=== PATIENT | male | born 1990 | race Caucasian/White ===

== ENCOUNTER 2021-05-17 19:39 | Observation (INO) ==
[2021-05-17] MEDS ORDERED: HYDROmorphone 0.5 MG/0.5 ML SYRINGE IV SLOW PU PRN (20:25)
[2021-05-17] MEDS ORDERED: Ondansetron 4 mg VIAL 2 MG/ML 2 ml VIAL IV PRN (20:25)
[2021-05-17] MEDS: Lactated Ringers 1000 ml BAG 1,000 ML IV SCH ×2 (20:58→23:24)
[2021-05-18] MEDS ORDERED: Buffered Lidocaine 1% SYRIN 1 ml INTRADERM ONE (08:06)
[2021-05-18] MEDS ORDERED: DiMENhydriNATE IV 50 mg/ml 1 ml VIAL IV PUSH PRN (08:06)
[2021-05-18] MEDS ORDERED: fentaNYL 100 mcg/2 ml 50 MCG/ML VIAL IV PRN (08:06)
[2021-05-18] MEDS ORDERED: Naloxone 0.4 mg VIAL 0.4 mg/ml 1 ml VIAL IV PRN (08:06)
[2021-05-18] MEDS ORDERED: Succinylcholine 200 mg VIAL 20 mg/ml 10 ml VIAL (200 mg) ONE (08:36)
[2021-05-18] MEDS ORDERED: Rocuronium 50 mg VIAL 10 mg/ml 5 ml VIAL (50 mg) ONE ×2 (08:36→10:31)
[2021-05-18] MEDS ORDERED: Propofol 10 MG/ML 20 ML BTL ONE (08:36)
[2021-05-18] MEDS ORDERED: Lidocaine 2% PF 5 ML VIAL ONE (08:38)
[2021-05-18] MEDS ORDERED: Lactated Ringers 1000 ml BAG 1,000 ML IV SCH (09:00)
[2021-05-18] MEDS ORDERED: Bupivacaine 0.25% SDV 30 ML ONE (09:15)
[2021-05-18] MEDS ORDERED: Midazolam 5 mg/5 ml VIAL 1 mg/ml 5 ml VIAL (5 mg) ONE (09:15)
[2021-05-18] MEDS ORDERED: Bupivacaine 0.25% EPI 200,000 30 ML SDV ONE (09:17)
[2021-05-18] MEDS ORDERED: fentaNYL 250 mcg/5 ml 50 MCG/ML 5 ml VIAL (250 MCG) ONE (09:44)
[2021-05-18] MEDS ORDERED: Dexamethasone IV 4 MG/ML VIAL 1 ml VIAL ONE (10:16)
[2021-05-18] MEDS ORDERED: Ondansetron 4 mg VIAL 2 MG/ML 2 ml VIAL ONE (10:16)
[2021-05-18] MEDS ORDERED: HYDROmorphone 1 MG/1 ML SYRINGE ONE (10:25)
[2021-05-18 13:28] VITALS: BP 116/68
[2021-05-19] MEDS ORDERED: Gentamicin ADULT 375 MG in NS 0.9% 100 ml BAG 100 ML IVPB ONE (07:00)
[2021-05-19] MEDS ORDERED: Clindamycin 900 MG/D5W BAG IVPB SCH (07:00)
== END 2021-05-18 13:25 | disposition home or self-care (01) ==
LOC: SSU 19:39 → ED 19:39 → SSU 05-18 19:55
PROVIDERS: ADMIT Surgery; ATTEND Surgery